=== PATIENT | male | born 1990 | race Asian ===

== ENCOUNTER 2018-03-26 07:54 | Emergency (ER) | payer OTHER ==
[2018-03-26 08:13] VITALS: BP 135/90
[2018-03-26] MEDS ORDERED: DEXAMETHASONE 10 MG/ML VIAL PO STA (08:22)
--- NOTE | 2018-03-26 08:25 | ED Physician Documentation ---
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 He has had some sweats and fever and his symptoms have persisted he is now become concerned as his is developed symptoms as well. He has small children at home. He did have to call out of work yesterday. Review of Systems Constitutional: reports: Fever, Chills, Myalgias, Fatigue, Sweats Eyes: denies: Decreased vision Ears: denies: Ear pain Nose: reports: Rhinorrhea / runny nose, Congestion Throat: reports: Sore throat Cardiac: denies: Chest pain / pressure, Palpitations Respiratory: reports: Cough. denies: Dyspnea GI: denies: Vomiting : denies: Dysuria, Frequency Skin: denies: Rash PD PAST MEDICAL HISTORY - Past Medical History Past Medical History: No - Present Medications Home Medications: Ambulatory Orders Medication Instructions Recorded Confirmed Amoxicillin 875 mg PO BID #20 tablet 03/26/18 - Allergies Allergies/Adverse Reactions: Allergies Allergy/AdvReac Type Severity Reaction Status Date / Time No Known Drug Allergies Allergy Verified 03/26/18 07:59 - Social History Does the pt smoke?: No Smoking Status: Never smoker PD ED PE NORMAL - Vitals Vital signs reviewed: Yes (hypertention ) - General General: Alert and oriented X 3, No acute distress, Well developed/nourished - HEENT HEENT: Atraumatic, PERRL, EOMI, Ears normal, Other (pharynx is with general erythema and mild swelling with exudate. ) - Neck Neck: Supple, no meningeal sign, No bony TTP, Other (shoddy adenopathy bilaterally ) - Cardiac Cardiac: RRR, No murmur - Respiratory Respiratory: No respiratory distress, Clear bilaterally - Abdomen Abdomen: Soft, Non tender - Back Back: No CVA TTP, No spinal TTP - Derm Derm: Normal color, Warm and dry, No rash - Extremities Extremities: No deformity, No edema - Neuro Neuro: No motor deficit, No sensory deficit Eye Opening: Spontaneous Motor: Obeys Commands Verbal: Oriented GCS Score: 15 - Psych Psych: Normal mood, Normal affect Results - Vitals Vitals: Vital Signs - 24 hr 03/26/18 07:58 Temperature 37.0 C Heart Rate 63 Respiratory 16 Rate Blood Pressure 135/90 H O2 Saturation 100 Oxygen O2 Source Room air - Labs Labs: Laboratory Tests 03/26/18 08:10 Group A Strep Rapid POSITIVE H PD MEDICAL DECISION MAKING - ED course Complexity details: considered differential, d/w patient ED course: 28-year-old male with a four-day history of sore throat with cough is administered dexamethasone orally. Departure - Departure Disposition: 01 Home, Self Care Clinical Impression: Strep pharyngitis Condition: Stable Instructions: ED Strep Pharyngitis Conf Follow-Up: [facility] [Provider Group] [facility] [Provider Group] Prescriptions: Amoxicillin 875 mg PO BID #20 tablet Forms: Activity restrictions Discharge Date/Time: 03/26/18 08:42
[2018-03-26] MEDS ORDERED: CHERRY SYRUP 10 ML UDC PO ONE (08:44)
== END 2018-03-26 08:42 | disposition home or self-care (01) ==
LOC: ED 07:54
DX: J02.0 Streptococcal pharyngitis (principal)
CPT/HCPCS: 87430; 99283; A9270

== ENCOUNTER 2018-10-18 14:30 | Outpatient (CLI) | payer OTHER ==
[2018-10-18 17:48] LABS: BASOPHILS # (AUTO) 0.1 10^3/uL (0.0-0.1); EOSINOPHILS # (AUTO) 0.2 10^3/uL (0.0-0.7); EOSINOPHILS % (AUTO) 3.4 %; HGB - HEMOGLOBIN 14.3 g/dL (14.0-18.0); LYMPHOCYTES # (AUTO) 0.9 10^3/uL (1.5-3.5); LYMPHOCYTES % (AUTO) 14.5 %; MEAN CORPUSCULAR HEMOGLOBIN 28.5 pg (27.0-31.0); MEAN CORPUSCULAR HGB CONC 33.7 g/dL (32.0-36.0); MEAN CORPUSCULAR VOLUME 84.3 fL (80.0-94.0); MEAN PLATELET VOLUME 8.6 fL (7.4-11.4); MONOCYTES # (AUTO) 0.5 10^3/uL (0.0-1.0); MONOCYTES % (AUTO) 7.1 %; NEUTROPHILS # (AUTO) 4.7 10^3/uL (1.5-6.6); PLT - PLATELET COUNT 320 10^3/uL (130-450); RED BLOOD COUNT 5.02 10^6/uL (4.70-6.10); RED CELL DISTRIBUTION WIDTH 11.9 % (12.0-15.0); WHITE BLOOD COUNT 6.4 x10^3/uL (4.8-10.8)
[2018-10-18 18:01] LABS: ALBUMIN 4.2 g/dL (3.2-5.5); ALBUMIN/GLOBULIN RATIO 1.2 (1.0-2.2); BILIRUBIN,TOTAL 0.6 mg/dL (0.2-1.0); CALCIUM 9.4 mg/dL (8.5-10.3); CREATININE 0.9 mg/dL (0.6-1.2); TOTAL PROTEIN 7.8 g/dL (6.7-8.2)
[2018-10-18 18:28] LABS: RHEUMATOID FACTOR NEGATIVE (Negative)
[2018-10-21 17:52] LABS: ANA SCREEN POSITIVE (NEGATIVE)
== END 2018-10-18 14:31 | disposition home or self-care (01) ==
LOC: LAB.F 14:30
PROVIDERS: ATTEND Nurse Practitioner Family
DX: R10.9 Unspecified abdominal pain (principal); Z13.29 Encounter for screening for other suspected endocrine disorder; M25.50 Pain in unspecified joint
CPT/HCPCS: 36415; 80053; 84443; 85025; 85651; 86038; 86140; 86430

== ENCOUNTER 2021-03-10 07:32 | Outpatient (CLI) | payer OTHER ==
--- NOTE | 2021-03-10 15:22 | XRAY Report ---
PROCEDURE: Foot 3 View LT INDICATIONS: METATARSALGIA, LEFT TECHNIQUE: 3 views of the foot were acquired. COMPARISON: None. FINDINGS: Bones: No fractures or dislocations. No suspicious bony lesions. Note is made of a partite medial sesamoid. Soft tissues: No tibiotalar joint effusion. Achilles tendon appears normal. IMPRESSION: No acute osseous abnormalities. Reviewed by: Deisi Plascencia MD on 03/10/2021 3:21 PM PDT Approved by: Deisi Plascencia MD on 03/10/2021 3:21 PM PDT Station ID: [id number]
== END 2021-03-10 23:59 | disposition home or self-care (01) ==
LOC: DI.N 07:32
PROVIDERS: ATTEND Family Medicine
DX: M77.42 Metatarsalgia, left foot (principal)